=== PATIENT | female | born 1940 | race Caucasian/White ===

== ENCOUNTER 2017-04-17 14:54 | Emergency (ER) | payer MEDICARE ==
[~2017-04-17] VITALS: Ht 162.6 cm; Wt 80.0 kg
[~2017-04-17 14:54] MED LIST: ALPRAZOLAM0.5 MG PO; AMIODARONE200 MG PO; AMLODIPINE5 MG PO; AMOXICILLIN/CL875 MG PO; ATORVASTATI80 MG/TAB PO; ATORVASTATIN CA40 MG PO; AUGMENTIN875TAB PO; BENAZEPRIL; CIPROFLOXACN500 MG PO; COUMADIN2.5 MG PO; COUMADIN3 MG PO; COUMADIN5 MG PO; DILTIAZEM; ENALAPRIL10 MG PO; ESCITALOPRAM OX10 MG PO; FENTANYL25 MCG/HR; FLORANEX PO; FUROSEMIDE20 MG PO; HCTZ; HYDROCO/APAP1 T10 PO; HYDROCODONE/ACE1 TA8 PO; K-DUR/KLOR-CON10 MEQ PO; LASIX 20 MG20 MG/TAB PO; LEXAPRO10 MG PO; LIPITOR40 MG PO; LOPRESSOR 550 MG/TAB PO; LORTAB 5/3255 MG PO; LORTAB5 OR; LOVENOX60 MG/0.1 SC; METOPROL TAR100 MG PO; METRONIDAZOL500 MG PO; PREDNISONE20 MG OR; VANCOMYCIN HCL125 MG PO; WARFARIN2.5 MG PO; WARFARIN3 MG PO; WARFARIN4 MG PO; WARFARIN5 MG PO; WARFARIN7.5 MG PO; XANAX0.5 MG PO; ZYVOX600 MG PO
[2017-04-17] MEDS ORDERED: LANOXIN0.125 MG PO (15:09)
[2017-04-17] MEDS ORDERED: FUROSEMIDE20 MG PO (15:10)
[2017-04-17] MEDS ORDERED: ATORVASTATIN CA40 MG PO (15:11)
[2017-04-17] MEDS ORDERED: KLOR-CON 1010 MEQ PO (15:12)
[2017-04-17] MEDS ORDERED: WARFARIN3 MG PO ×2 (15:14)
[2017-04-17] MEDS ORDERED: ACETAMIN325 MG PO (15:15)
[2017-04-17 15:33] LABS: HEMATOCRIT 42.5 % (37.0-47.0); HEMOGLOBIN 13.1 g/dl (12.0-16.0); IMMATURE GRANULOCYTES 0.5 % (0.0-1.0); MEAN CORPUSCULAR HGB 27.8 pG CALC (26.0-32.0); MEAN CORPUSCULAR HGB CONC 30.8 g/L CALC (32.0-36.0); NEUT# 6.21 thou/uL (2.00-7.15); RED BLOOD COUNT 4.72 mill/uL (4.20-5.60); RED CELL DISTRI WIDTH 14.6 % (11.5-15.5)
[2017-04-17 16:00] LABS: INTERNATIONAL NORMALIZED RATIO 4.1 RATIO (0.7-1.3)
[2017-04-17 16:07] LABS: PROTHROMBIN TIME 49.1 SECONDS (9.0-12.5)
[2017-04-17 16:16] LABS: ALBUMIN 3.9 g/dL (3.2-5.0); ALKALINE PHOSPHATASE 124 u/l (38-126); ANION GAP 17 (6-22 (CALC)); BILIRUBIN, TOTAL 0.4 mg/dL (0.0-1.4); BUN 15 mg/dL (8-23); BUN/CREATININE RATIO 17 (12-20 (CALC)); CALCIUM 9.5 mg/dL (8.4-10.2); CARBON DIOXIDE 26 mmol/l (22-30); CHLORIDE 102 mmol/l (95-108); CREATININE 0.9 mg/dL (0.5-1.0); GFR > 60 ML/MIN (>=60 (CALC)); GFR FOR AFR.AMER. > 60 ML/MIN (>=60 (CALC)); GLUCOSE 131 mg/dL (82-115); POTASSIUM 3.8 mmol/l (3.5-5.1); SGOT/AST 17 u/l (9-36); SGPT/ALT 28 u/l (11-66); SODIUM 141 mmol/l (137-146); TOTAL PROTEIN 6.7 g/dL (6.3-8.2)
[2017-04-17 16:33] LABS: URINE BILIRUBIN - DIPSTICK NEGATIVE (NEGATIVE); URINE BLOOD DIPSTICK SMALL (NEGATIVE); URINE CLARITY CLEAR; URINE COLOR YELLOW; URINE GLUCOSE - DIPSTICK NEGATIVE (NEGATIVE); URINE KETONE NEGATIVE (NEGATIVE); URINE LEUK ESTERASE NEGATIVE (NEGATIVE); URINE NITRITE - DIPSTICK NEGATIVE (Negative); URINE PH 5.5 (4.5-8.0); URINE PROTEIN - DIPSTICK NEGATIVE (NEG-TRACE); URINE UROBILINOGEN - DIPSTICK 0.2 E.U./dL (0.2)
[2017-04-17 16:54] LABS: URINE SQUAMOUS EPITHELIAL CELL FEW EPI/hpf (0-FEW)
[2017-04-17] MEDS ORDERED: CLONIDINE0.1 MG PO (17:15)
[2017-04-17 17:48] VITALS: BP 157/67
== END 2017-04-17 18:58 ==
LOC: ED 14:54
PROVIDERS: Emergency Medicine
DX: R04.0 Epistaxis (principal); T45.515A Adverse effect of anticoagulants, initial encounter; Y92.128 Other place in nursing home as the place of occurrence of the external cause

== ENCOUNTER 2017-04-28 18:58 | Observation (INO) | payer MEDICARE ==
[~2017-04-28] VITALS: Ht 162.6 cm; Wt 79.0 kg
[~2017-04-28 18:58] MED LIST changes: +ACETAMIN325 MG PO; +CLONIDINE0.1 MG PO; +KLOR-CON 1010 MEQ PO; +LANOXIN0.125 MG PO
--- NOTE | 2017-04-28 19:16 | NUR ---
# N22 LEFT HAND. BLOOD DRAWN.
--- NOTE | 2017-04-28 19:25 | NUR ---
PT ARRIVED VIA EMS/MINOR NOSE BLEED. HOLDING PRESSURE. A/O. PWD. VSS. FROM [facility]. APPARENTLY ELEVATED INR. COUMADIN HELD TODAY.
--- NOTE | 2017-04-28 19:28 | NUR ---
BLEEDING STOPPED AT MOMENT.
--- NOTE | 2017-04-28 19:30 | NUR ---
CM APPLIED ON ARRIVAL. AFIB/WITH PVCS.
--- NOTE | 2017-04-28 19:52 | NUR ---
NOSE CLAMP APPLIED
[2017-04-28 19:56] LABS: HEMATOCRIT 38.5 % (37.0-47.0); HEMOGLOBIN 12.3 g/dl (12.0-16.0); IMMATURE GRANULOCYTES 0.3 % (0.0-1.0); MEAN CELL VOLUME 88.3 fL CALC (80.0-100.0); MEAN CORPUSCULAR HGB 28.2 pG CALC (26.0-32.0); MEAN CORPUSCULAR HGB CONC 31.9 g/L CALC (32.0-36.0); NEUT# 7.24 thou/uL (2.00-7.15); RED BLOOD COUNT 4.36 mill/uL (4.20-5.60); RED CELL DISTRI WIDTH 14.7 % (11.5-15.5)
--- NOTE | 2017-04-28 20:02 | NUR ---
LAB HERE TO RE-COLLECT BLOOD WAS HEMOLIZED.
[2017-04-28 20:03] LABS: ACT PARTIAL THROMBO TIME 40.8 SECONDS (20.0-32.5); INTERNATIONAL NORMALIZED RATIO 3.8 RATIO (0.7-1.3)
[2017-04-28 20:10] LABS: PROTHROMBIN TIME 46.3 SECONDS (9.0-12.5)
--- NOTE | 2017-04-28 20:16 | NUR ---
CRITICAL RESULT GIVEN TO DR. SUAREZ TIME 46.3
[2017-04-28 20:40] LABS: ALBUMIN 3.6 g/dL (3.2-5.0); BILIRUBIN, TOTAL 0.4 mg/dL (0.0-1.4); CALCIUM 9.4 mg/dL (8.4-10.2); CREATININE 1.1 mg/dL (0.5-1.0); POTASSIUM 3.8 mmol/l (3.5-5.1); TOTAL PROTEIN 6.5 g/dL (6.3-8.2)
[2017-04-28 20:44] LABS: DIGOXIN 0.9 ng/mL (0.8-2.0)
[2017-04-28 20:52] LABS: MYOGLOBIN 23 ng/mL (0 - 62)
--- NOTE | 2017-04-28 21:17 | NUR ---
PT VOIDED ON BEDPAN. URINE SAMPLE TO THE LAB. CLAMP REMOVED FROM NOSE.
--- NOTE | 2017-04-28 21:17 | NUR ---
NO FUTHUR BLEEDING. DRIED BLOOD CLEANSED. PT CHANGED INTO GOWN.
[2017-04-28 21:23] LABS: URINE BILIRUBIN - DIPSTICK NEGATIVE (NEGATIVE); URINE BLOOD DIPSTICK SMALL (NEGATIVE); URINE CLARITY SLIGHT CLOUDY; URINE COLOR YELLOW; URINE GLUCOSE - DIPSTICK NEGATIVE (NEGATIVE); URINE KETONE NEGATIVE (NEGATIVE); URINE LEUK ESTERASE NEGATIVE (NEGATIVE); URINE NITRITE - DIPSTICK NEGATIVE (Negative); URINE PROTEIN - DIPSTICK NEGATIVE (NEG-TRACE); URINE SPECIFIC GRAVITY 1.015; URINE UROBILINOGEN - DIPSTICK 0.2 E.U./dL (0.2)
[2017-04-28 21:26] LABS: URINE BACTERIA FEW hpf; URINE MUCUS FEW hpf (NONE-FEW); URINE RBC 0-2 RBC/hpf (0-5); URINE SQUAMOUS EPITHELIAL CELL MODERATE EPI/hpf (0-FEW); URINE WBC 0-2 WBC/hpf (0-5)
[2017-04-28] MEDS ORDERED: FUROSEMIDE20 MG PO (21:28)
--- NOTE | 2017-04-28 23:51 | NUR ---
PT VOIDED. NO ACTIVE BLEEDING. REPORT CALLED TO [facility] ON THE FLOOR.
[2017-04-29 00:19] VITALS: BP 147/83
--- NOTE | 2017-04-29 01:07 | NUR ---
PATIENT ADMITTED FROM ER VIA STRETCHER WITH ER STAFF IN ATTENDANCE. PATIENT ASSISTED FRO STRETCHER TO STANDING SCALE AND THEN TO BED. PATIENT IS UNSTEADY ON HER FEET. PATIENT IS ALERT AND ORIENTEDX3 BUT DOES HAVE SOME SHORT TERM MEMORY DIFFICULTIES AND IS FORGETFUL. PATIENT WITH HEP LOCK TO THE LEFT HAND-SITE IS HEALTHY AT THIS TIME. NO EVIDENCE OF ANY BLEEDING AT THIS TIME. NO NOSE BLEED AT THIS TIME. PATIENT ORIENTED TO ROOM AND SURROUNDINGS. INSTRUCTED ON USE OF NURSE CALL LIGHT SYSTEM. SAFETY PRECAUTIONS REVIEWED WITH PATIENT. INSTRUCTED TO CALL FOR ASSISTANCE. CALL LIGHT IN REACH. WILL CONT TO MONITOR.
--- NOTE | 2017-04-29 04:00 | NUR ---
PATIENT APPEARS SLEEPING AT THIS TIME. CALL LIGHT IN REACH. WILL CONT TO MONITOR.
--- NOTE | 2017-04-29 07:00 | NUR ---
SHIFT CHANGE REPORT FROM GARETT MALONEY AWAKE ALERT AND ORIENTED SITTING UP IN RECLINER, DENIES PAIN/DISCOMFORT AT THIS TIME, ASSISTED WITH MEAL SET-UP, ALL NEEDS ADDRESSED, CALL LEIVA IN REACH.
[2017-04-29 07:37] VITALS: BP 158/76
[2017-04-29 09:08] LABS: INTERNATIONAL NORMALIZED RATIO 2.6 RATIO (0.7-1.3); PROTHROMBIN TIME 29.6 SECONDS (9.0-12.5)
[2017-04-29 09:12] LABS: HEMATOCRIT 41.1 % (37.0-47.0); HEMOGLOBIN 12.9 g/dl (12.0-16.0); MEAN CELL VOLUME 89.2 fL CALC (80.0-100.0); MEAN CORPUSCULAR HGB CONC 31.4 g/L CALC (32.0-36.0); RED BLOOD COUNT 4.61 mill/uL (4.20-5.60); RED CELL DISTRI WIDTH 14.6 % (11.5-15.5)
[2017-04-29 09:44] LABS: CHOLESTEROL HDL RATIO 5.3 (<4.4 (CALC))
--- NOTE | 2017-04-29 10:39 | NUR ---
SITTING UP IN RECLINER AT THIS TIME AND JUST REPORTED EPISTAXIS, NOSE CLAMP RECEIVED FROM ED AND PLACED ON NOSE, PT ADVISED TO SIT STILL FOR NEXT 15 MINS, WILL CONTINUE TO MONITOR, CALL LEIVA IN REACH.
--- NOTE | 2017-04-29 11:00 | NUR ---
BLEEDING RECEEDING AT THIS TIME WITH [place] PALE BLOOD, CLAMP REMOVED, WILL CONTNUE TO MONITOR.
--- NOTE | 2017-04-29 11:45 | NUR ---
SITTING UP IN RECLINER, NOSE BLEED BEING MONITORED, MEAL SERVED, CALL LEIVA IN REACH.
--- NOTE | 2017-04-29 13:48 | NUR ---
BLEEDING RESOLVED AT THIS TIME AFTER RECLAMPING NOSE FOR ANOTHER 30 MINS, PT STILL SITTIG IN RECLINER WITH CALL LEIVA IN REACH.
--- NOTE | 2017-04-29 15:50 | NUR ---
ASSISTED TO [facility] AND BACK TO RECLINER, C/O OF BEING CONFUSED ABOUT BEING IN HOSPITAL STATINS SHE ALREADY PAID FOR HER ROOM AT THE [facility] AND THERE SHOULD BE A MEAL WAITING THERE FOR HER, RE-ORIENTED TO REASON SHE IS HOSPITALISED AND PLAN OF CARE. STATES UNDERSTANDING, WILL CONTINUE TO MONITOR.
[2017-04-29 16:07] VITALS: BP 157/81
[2017-04-29 19:50] VITALS: BP 167/64
--- NOTE | 2017-04-29 20:00 | NUR ---
PT AMBULATING IN ROOM A/O X3, RESPIRATIONS EVEN AND UNLABORED. DENIES ABDOMINAL PAIN OR DISCOMFORT. ENCOURAGED TO USE CALL LIGHT FOR ASSISTANCE, PO FLUIDS AT BED SIDE. WILL CONTINUE TO MONITOR.
[2017-04-29 23:18] VITALS: BP 150/79
--- NOTE | 2017-04-30 00:30 | NUR ---
PT RESTING IN BED WITH EYES CLOSED, RESPIRATIONS EVEN AND UNLABORED. CALL LIGHT IN REACH. DENIES PAIN.
--- NOTE | 2017-04-30 00:34 | NUR ---
PT SITTING IN RECLINER CHAIR OFFERED ASSISTANCE TO BED, PT REFUSES STATES SHE IS COMFORTABLE IN CHAIR. PT NOTICED TO BE CONFUSED, BUT PLEASANT AND FOLLOWS DIRECTIONS. CALL LIGHT IN REACH, WILL CONTINUE TO MONITOR.
--- NOTE | 2017-04-30 04:00 | NUR ---
OUT OF RECLINER CHAIR TO [facility], VOIDING DARK YELLOW URINE. PT IS CONFUSED, REORIENTED TO TIME AND PLACE. IS PLEASANT AND FOLLOWS DIRECTIONS, DENIES PAIN OR DISCOMFORT.
[2017-04-30 04:20] VITALS: BP 149/66
[2017-04-30 05:33] LABS: ANION GAP 16 (6-22 (CALC)); BUN 19 mg/dL (8-23); BUN/CREATININE RATIO 23 (12-20 (CALC)); CALCIUM 9.7 mg/dL (8.4-10.2); CARBON DIOXIDE 29 mmol/l (22-30); CHLORIDE 101 mmol/l (95-108); CREATININE 0.8 mg/dL (0.5-1.0); GFR > 60 ML/MIN (>=60 (CALC)); GFR FOR AFR.AMER. > 60 ML/MIN (>=60 (CALC)); GLUCOSE 118 mg/dL (82-115); POTASSIUM 4.3 mmol/l (3.5-5.1); SODIUM 142 mmol/l (137-146)
[2017-04-30 05:40] LABS: INTERNATIONAL NORMALIZED RATIO 1.5 RATIO (0.7-1.3); PROTHROMBIN TIME 16.9 SECONDS (9.0-12.5)
[2017-04-30 05:48] LABS: HEMATOCRIT 39.1 % (37.0-47.0); HEMOGLOBIN 12.1 g/dl (12.0-16.0); MEAN CELL VOLUME 89.9 fL CALC (80.0-100.0); MEAN CORPUSCULAR HGB 27.8 pG CALC (26.0-32.0); MEAN CORPUSCULAR HGB CONC 30.9 g/L CALC (32.0-36.0); RED BLOOD COUNT 4.35 mill/uL (4.20-5.60); RED CELL DISTRI WIDTH 14.6 % (11.5-15.5)
--- NOTE | 2017-04-30 07:00 | NUR ---
SHIFT CHANGE REPORT FROM GARETT FOWLER AWAKE AND ALERT SITTING UP IN RECLINER, ANXIOUS TO RETURN TO [facility], ADVISED MD WILL SEE HER LATER AND DECIDE ON PLAN OF CARE. CALL LEIVA IN REACH.
[2017-04-30 08:52] VITALS: BP 136/79
[2017-04-30 08:56] VITALS: BP 136/79
[2017-04-30] MEDS ORDERED: METFORMIN500 MG PO (09:37)
--- NOTE | 2017-04-30 13:11 | NUR ---
Discharge instructions given. Patient verbalizes understanding of same. Discharged in stable condition via Wheelchair to Home with *Other. All belongings sent with pt.
== END 2017-04-30 13:08 ==
LOC: ED 18:58 → ED-I 22:00 → ED 23:23 → MS2 23:24
PROVIDERS: Emergency Medicine; Internal Medicine; Nurse Practitioner Family; ADMIT Internal Medicine; ATTEND Internal Medicine
DX: R04.0 Epistaxis (principal); D68.32 Hemorrhagic disorder due to extrinsic circulating anticoagulants; T45.515A Adverse effect of anticoagulants, initial encounter; N17.9 Acute kidney failure, unspecified; I10 Essential (primary) hypertension; E11.9 Type 2 diabetes mellitus without complications; I25.10 Atherosclerotic heart disease of native coronary artery without angina pectoris; I48.2 Chronic atrial fibrillation; E78.5 Hyperlipidemia, unspecified; M19.90 Unspecified osteoarthritis, unspecified site; F32.9 Major depressive disorder, single episode, unspecified; M54.9 Dorsalgia, unspecified; B91 Sequelae of poliomyelitis; Y92.099 Unspecified place in other non-institutional residence as the place of occurrence of the external cause; Z95.5 Presence of coronary angioplasty implant and graft; Z86.73 Personal history of transient ischemic attack (TIA), and cerebral infarction without residual deficits